=== PATIENT | male | born 1985 | race Caucasian/White ===

== ENCOUNTER 2021-09-05 13:17 | Emergency (ER) | payer BC, OTHER ==
[~2021-09-05] VITALS: Ht 180.3 cm; Wt 95.3 kg
--- NOTE | 2021-09-05 13:50 | NUR ---
BIB GF C/O LOWER BACK PAIN X 2 DAYS. DENIES INJURY. HX OF SCOLIOSIS. TO ER BED 3, HOOKED TO MONITOR, VSS. CHANGED TO HOSP GOWN, WARM BLANKET PROVIDED. AWAITING MD MONTEJO.
--- NOTE | 2021-09-05 14:30 | NUR ---
DR LING AT BEDSIDE
[2021-09-05] MEDS ORDERED: KETOROLAC TROMETHAMINE INJ 60 MG/2 ML VIAL IM ONE ×2 (14:51→15:00)
[2021-09-05] MEDS ORDERED: METHOCARBAMOL (500MG) 500 MG TABLET ONE (14:51)
--- NOTE | 2021-09-05 14:58 | NUR ---
WHEELED VIA [facility] FOR CT SCAN
[2021-09-05] MEDS ORDERED: METHOCARBAMOL (500MG) 500 MG TABLET PO ONE (15:00)
[2021-09-05] MEDS ORDERED: METH-647 PO (15:35)
[2021-09-05] MEDS ORDERED: IBUP-1957 PO (15:35)
[2021-09-05] MEDS ORDERED: HYDR-3972 PO (15:35)
--- NOTE | 2021-09-05 15:44 | NUR ---
Patient discharged to home in stable condition. Written and verbal after care instructions given. Patient verbalizes understanding of instruction.
[2021-09-05 15:46] VITALS: BP 142/70
== END 2021-09-05 15:46 | disposition home or self-care (01) ==
LOC: ER 13:22
DX: M54.40 Lumbago with sciatica, unspecified side (principal)
CPT/HCPCS: 72131; 96372; 99284; J1885